=== PATIENT | female | born 1950 | race Caucasian/White ===

== ENCOUNTER 2020-09-03 08:10 | Inpatient (IN) | payer MEDICARE ==
[2020-09-03] MEDS ORDERED: ACETAMINOPHEN TAB 500 MG TAB PO STA (08:37)
[2020-09-03] MEDS ORDERED: ALBUTEROL HFA INHALER INHALATION PRN (08:37)
[2020-09-03] MEDS ORDERED: ALBUTEROL HFA INHALER INHALATION STA (08:37)
[2020-09-03] MEDS ORDERED: SODIUM CHLORIDE 0.9% 1,000 ML IV STA (08:51)
--- NOTE | 2020-09-03 08:53 | ED ---
General Adult HPI - General Chief complaint: Shortness of Breath Stated complaint: Covid+, RIP Time Seen by Provider: 09/03/20 08:22 Source: patient, family, RN notes reviewed Mode of arrival: wheelchair Limitations: no limitations - History of Present Illness Initial comments: Patient is a pleasant 70-year-old female presenting to the emergency Department with complaints of fever and not feeling well. Onset of symptoms was 9 days ago. Patient does have cough and shortness of breath. Patient was tested positive with results last night for Dougherty virus. Patient has fatigue, nonproductive cough, shortness of breath. Patient has myalgias. Patient has chills and decreased appetite. Some minimal nausea. No vomiting or diarrhea. Patient has decreased oral intake. Patient has loss of taste and loss of smell. - Related Data Allergies Allergy/AdvReac Type Severity Reaction Status Date / Time cephalexin [From Keflex] Allergy Anaphylaxis Verified 09/03/20 08:18 Review of Systems ROS Statement: Those systems with pertinent positive or pertinent negative responses have been documented in the HPI. ROS Other: All systems not noted in ROS Statement are negative. Constitutional: Reports: fever, chills Eyes: Denies: eye pain ENT: Denies: ear pain Respiratory: Reports: cough, dyspnea Cardiovascular: Denies: chest pain Endocrine: Reports: fatigue Gastrointestinal: Denies: abdominal pain Genitourinary: Denies: dysuria Musculoskeletal: Denies: back pain Skin: Denies: rash Neurological: Denies: weakness Past Medical History Past Medical History: Diabetes Mellitus, Hypertension History of Any Multi-Drug Resistant Organisms: None Reported Past Surgical History: No Surgical Hx Reported Past Psychological History: No Psychological Hx Reported Smoking Status: Never smoker Past Alcohol Use History: None Reported Past Drug Use History: None Reported General Exam Limitations: no limitations General appearance: alert, in no apparent distress Head exam: Present: normocephalic Eye exam: Present: normal appearance Neck exam: Present: normal inspection Respiratory exam: Present: normal lung sounds bilaterally Cardiovascular Exam: Present: regular rate, normal rhythm GI/Abdominal exam: Present: soft. Absent: tenderness Extremities exam: Present: normal inspection. Absent: pedal edema, calf tenderness Neurological exam: Present: alert Psychiatric exam: Present: normal affect, normal mood Skin exam: Present: normal color Course Vital Signs 09/03/20 09/03/20 09/03/20 08:12 09:40 10:00 Temperature 101.0 F H Pulse Rate 83 Respiratory 18 16 Rate Blood Pressure 119/72 O2 Sat by Pulse 94 L 89 L Oximetry 09/03/20 10:57 Temperature Pulse Rate 87 Respiratory 16 Rate Blood Pressure 108/67 O2 Sat by Pulse 95 Oximetry EKG Findings - EKG Comments: EKG Findings:: Normal sinus rhythm and 96. [place] 150. QRS 82. QT 328. QTC 414. Normal axis. Normal QRS. No acute ST change. Medical Decision Making - Medical Decision Making Patient reevaluated. Pulse ox 89% on room air and still complains of feeling shortness of breath. Patient placed on oxygen. Case discussed with Dr. Maza, who will admit covering for hospital call. - Lab Data Result diagrams: 09/03/20 09:28 09/03/20 09:28 Lab Results 09/03/20 09/03/20 09/03/20 Range/Units 09:28 09:28 09:28 WBC 7.6 (3.8-10.6) k/uL RBC 4.46 (3.80-5.40) m/uL Hgb 12.9 (11.4-16.0) gm/dL Hct 37.3 (34.0-46.0) % MCV 83.6 (80.0-100.0) fL MCH 28.9 (25.0-35.0) pg MCHC 34.6 (31.0-37.0) g/dL RDW 12.4 (11.5-15.5) % Plt Count 240 (150-450) k/uL MPV 7.2 Neutrophils % 85 % Lymphocytes % 11 % Monocytes % 3 % Eosinophils % 0 % Basophils % 0 % Neutrophils # 6.5 (1.3-7.7) k/uL Lymphocytes # 0.8 L (1.0-4.8) k/uL Monocytes # 0.2 (0-1.0) k/uL Eosinophils # 0.0 (0-0.7) k/uL Basophils # 0.0 (0-0.2) k/uL PT 10.2 (9.0-12.0) sec INR 0.9 (<1.2) APTT 24.9 (22.0-30.0) sec Sodium 128 L (137-145) mmol/L Potassium 4.5 (3.5-5.1) mmol/L Chloride 95 L (98-107) mmol/L Carbon Dioxide 23 (22-30) mmol/L Anion Gap 10 mmol/L BUN 4 L (7-17) mg/dL Creatinine 0.47 L (0.52-1.04) mg/dL Est GFR (CKD-EPI)AfAm >90 (>60 ml/min/1.73 sqM) Est GFR (CKD-EPI)NonAf >90 (>60 ml/min/1.73 sqM) Glucose 120 H (74-99) mg/dL Plasma Lactic Acid Orlin (0.7-2.0) mmol/L Calcium 9.0 (8.4-10.2) mg/dL Magnesium 1.7 (1.6-2.3) mg/dL Total Bilirubin 0.5 (0.2-1.3) mg/dL AST 52 H (14-36) U/L ALT 33 (4-34) U/L Alkaline Phosphatase 93 (38-126) U/L Lactate Dehydrogenase 928 H (313-618) U/L Troponin I (0.000-0.034) ng/mL C-Reactive Protein 164.7 H (<10.0) mg/L Total Protein 6.7 (6.3-8.2) g/dL Albumin 3.7 (3.5-5.0) g/dL Coronavirus (PCR) (Not Detectd) 09/03/20 09/03/20 09/03/20 Range/Units 09:28 09:28 09:28 WBC (3.8-10.6) k/uL RBC (3.80-5.40) m/uL Hgb (11.4-16.0) gm/dL Hct (34.0-46.0) % MCV (80.0-100.0) fL MCH (25.0-35.0) pg MCHC (31.0-37.0) g/dL RDW (11.5-15.5) % Plt Count (150-450) k/uL MPV Neutrophils % % Lymphocytes % % Monocytes % % Eosinophils % % Basophils % % Neutrophils # (1.3-7.7) k/uL Lymphocytes # (1.0-4.8) k/uL Monocytes # (0-1.0) k/uL Eosinophils # (0-0.7) k/uL Basophils # (0-0.2) k/uL PT (9.0-12.0) sec INR (<1.2) APTT (22.0-30.0) sec Sodium (137-145) mmol/L Potassium (3.5-5.1) mmol/L Chloride (98-107) mmol/L Carbon Dioxide (22-30) mmol/L Anion Gap mmol/L BUN (7-17) mg/dL Creatinine (0.52-1.04) mg/dL Est GFR (CKD-EPI)AfAm (>60 ml/min/1.73 sqM) Est GFR (CKD-EPI)NonAf (>60 ml/min/1.73 sqM) Glucose (74-99) mg/dL Plasma Lactic Acid Orlin 1.0 (0.7-2.0) mmol/L Calcium (8.4-10.2) mg/dL Magnesium (1.6-2.3) mg/dL Total Bilirubin (0.2-1.3) mg/dL AST (14-36) U/L ALT (4-34) U/L Alkaline Phosphatase (38-126) U/L Lactate Dehydrogenase (313-618) U/L Troponin I <0.012 (0.000-0.034) ng/mL C-Reactive Protein (<10.0) mg/L Total Protein (6.3-8.2) g/dL Albumin (3.5-5.0) g/dL Coronavirus (PCR) Detected A (Not Detectd) - Radiology Data Radiology results: image reviewed (Chest x-ray shows diffuse interstitial infiltrates, left greater than right) Disposition Clinical Impression: Pneumonia due to COVID-19 virus Disposition: ADMITTED IP TO THIS [facility] Condition: Serious Is patient prescribed a controlled substance at d/c from ED?: No Referrals: Nonstaff,Physician [Primary Care Provider] - 1-2 days Decision Time: 11:04
--- NOTE | 2020-09-03 09:54 | XR ---
EXAMINATION TYPE: XR chest 1V portable DATE OF EXAM: 09/03/2020 Comparison: None Clinical History: 70-year-old female Suspected COVID-19 pneumonia Findings: Heart upper limits of normal in size. Hyperinflation. Patchy peripheral midlung opacities, left great er than right. No pleural effusion. Impression: COPD and patchy peripheral COVID pneumonia, left greater than right.
[2020-09-03 09:58] LABS: Basophils % (A) 0 %; Eosinophils % (A) 0 %; HCT 37.3 % (34.0-46.0); HGB 12.9 gm/dL (11.4-16.0); Lymphocytes # (A) 0.8 k/uL (1.0-4.8); Lymphocytes % (A) 11 %; MCH 28.9 pg (25.0-35.0); MCHC 34.6 g/dL (31.0-37.0); MCV 83.6 fL (80.0-100.0); Mean Platelet Volume 7.2; Monocytes # (A) 0.2 k/uL (0-1.0); Monocytes % (A) 3 %; Neutrophils # (A) 6.5 k/uL (1.3-7.7); Neutrophils % (A) 85 %; Platelet Count 240 k/uL (150-450); RBC 4.46 m/uL (3.80-5.40); RDW 12.4 % (11.5-15.5); WBC 7.6 k/uL (3.8-10.6)
[2020-09-03 10:12] LABS: ALT 33 U/L (4-34); AST 52 U/L (14-36); African American GFR (CKD) >90 (>60 ml/min/1.73 sqM); Albumin 3.7 g/dL (3.5-5.0); Alkaline Phosphatase 93 U/L (38-126); Anion Gap 10 mmol/L; Blood Urea Nitrogen 4 mg/dL (7-17); Carbon Dioxide 23 mmol/L (22-30); Chloride 95 mmol/L (98-107); Glucose 120 mg/dL (74-99); LDH 928 U/L (313-618); Magnesium 1.7 mg/dL (1.6-2.3); Non-African American GFR(CKD) >90 (>60 ml/min/1.73 sqM); Potassium 4.5 mmol/L (3.5-5.1); Sodium 128 mmol/L (137-145); Total Bilirubin 0.5 mg/dL (0.2-1.3); Total Protein 6.7 g/dL (6.3-8.2)
[2020-09-03 10:18] LABS: INR 0.9 (<1.2); Partial Thromboplastin Time 24.9 sec (22.0-30.0); Prothrombin Time 10.2 sec (9.0-12.0)
[2020-09-03 10:27] LABS: C Reactive Protein 164.7 mg/L (<10.0)
[2020-09-03] MEDS ORDERED: NALOXONE 0.4 MG/ML 1 ML VIAL IV PRN (11:06)
[2020-09-03] MEDS: ENOXAPARIN 40 MG/0.4 ML SYRINGE SQ SCH (11:49)
[2020-09-03] MEDS: ASCORBIC ACID 500 MG TAB PO SCH ×2 (11:49→19:12)
[2020-09-03] MEDS: CHOLECALCIFEROL 25 MCG (1000 IU) TABLET PO SCH (11:49)
[2020-09-03] MEDS: ZINC SULFATE 220 MG CAP PO SCH (11:49)
[2020-09-03] MEDS: DEXAMETHASONE SOD PHOSPHATE 10 MG/ML 1 ML VIAL IV SCH (11:49)
[2020-09-03] MEDS: SODIUM CHLORIDE 0.9% 1,000 ML IV SCH (13:14)
[2020-09-03] MEDS: ALBUTEROL HFA INHALER INHALATION SCH ×2 (16:22→19:59)
[2020-09-03] MEDS ORDERED: REMDESIVIR 200 MG in SODIUM CHLORIDE 0.9% 250 ML IVPB ONE (17:30)
--- NOTE | 2020-09-03 17:38 | P.CNPUL ---
History of Present Illness Consult date: 09/03/20 Reason for consult: dyspnea History of present illness: 70-year-old male patient hospitalized for COVID-19 related pneumonia. The patient presented to the hospital because of cough and shortness of breath. He tested positive for COVID-19. He is also having some fatigue, nonproductive cough, myalgia. He has been having chills and diminished appetite. He has also lost his taste and smell. In the emergency, the patient had a temperature of 11.0, his white cycle was at 7.6 with a hemoglobin of 12.9, the patient had lymphopenia, sodium level was 128, normal renal function, normal LFTs, LDH was 928 with a CRP level of 164. The chest x-ray showed COPD and patchy peripheral pulmonary infiltrates left greater than right. The patient is on oxygen on 2 L per minute nasal cannula. Comorbid conditions include diabetes mellitus, hypertension and previous history of breast cancer. Review of Systems 14 point review of system was done and the positive findings were mentioned above in history of present illness Constitutional: Reports fatigue, Reports weight loss Eyes: denies as per HPI, denies blurred vision, denies bulging eye, denies decreased vision, denies diplopia, denies discharge, denies dry eye, denies irritation, denies itching, denies pain, denies photophobia, denies loss of peripheral vision, denies loss of vision, denies tunnel vision/blind spots Ears, nose, mouth and throat: Reports as per HPI Breasts: absent: as per HPI, change in shape, gynecomastia, masses, nipple discharge, pain, skin changes, swelling Cardiovascular: Reports dyspnea on exertion Respiratory: Reports cough, Reports dyspnea Gastrointestinal: Reports diarrhea, Reports loss of appetite Genitourinary: Reports as per HPI Menstruation: Reports as per HPI Musculoskeletal: Reports as per HPI Musculoskeletal: absent: ankle pain, ankle stiffness, ankle swelling, as per HPI, elbow pain, elbow stiffness, elbow swelling, foot pain, foot stiffness, foot swelling, hand pain, hand stiffness, hand swelling, hip pain, hip stiffness, hip swelling, knee pain, knee stiffness, knee swelling, shoulder pain, shoulder stiffness, shoulder swelling, wrist pain, wrist stiffness, wrist swelling Integumentary: Reports as per HPI Neurological: Reports as per HPI Psychiatric: Reports as per HPI Endocrine: Reports as per HPI Hematologic/Lymphatic: Reports as per HPI Allergic/Immunologic: Reports as per HPI Past Medical History Past Medical History: Diabetes Mellitus, GERD/Reflux, Hypertension Additional Past Medical History / Comment(s): Pt tested covid + 09/03/20 at [facility] ER. Other hx: NIDDM type II, L breast cancer with lumpectomy/radi ation/anastozole, hiatal hernia, UTIs History of Any Multi-Drug Resistant Organisms: None Reported Past Surgical History: Breast Surgery, Cholecystectomy, Tonsillectomy Additional Past Surgical History / Comment(s): L breast biopsy/lumpectomy, colonoscopy, bilateral cataract removals/lens implants. The patient has also had undergone a parathyroidectomy Past Anesthesia/Blood Transfusion Reactions: No Reported Reaction Smoking Status: Never smoker - Past Family History Father Family Medical History: Myocardial Infarction ([place]) Additional Family Medical History / Comment(s): Father of a DE at the age of 83 yrs. Mother Family Medical History: CVA/TIA, Diabetes Mellitus Medications and Allergies Home Medications Medication Instructions Recorded Confirmed Type Anastrozole 1 mg PO DAILY 09/03/20 09/03/20 History Cholecalciferol [Vitamin D3 (25 50 mcg PO DAILY 09/03/20 09/03/20 History Mcg = 1000 Iu)] Enalapril [Vasotec] 10 mg PO DAILY 09/03/20 09/03/20 History Pantoprazole Sodium 20 mg PO DAILY 09/03/20 09/03/20 History Ubidecarenone [Co Q-10] 300 mg PO DAILY 09/03/20 09/03/20 History Vitamin E 400 unit PO DAILY 09/03/20 09/03/20 History amLODIPine [Norvasc] 10 mg PO DAILY 09/03/20 09/03/20 History metFORMIN HCL [Glucophage] 500 mg PO BID 09/03/20 09/03/20 History Allergies Allergy/AdvReac Type Severity Reaction Status Date / Time cephalexin [From Keflex] Allergy Anaphylaxis Verified 09/03/20 11:05 Physical Exam Vitals: Vital Signs Temp Pulse Pulse Resp BP BP Pulse Ox 09/03/20 16:22 97 09/03/20 15:18 20 09/03/20 14:50 98.7 F 91 16 123/69 96 09/03/20 14:00 98.2 F 91 18 127/72 94 L 09/03/20 11:51 98.7 F 86 16 122/62 96 09/03/20 10:57 87 16 108/67 95 09/03/20 10:00 89 L 09/03/20 09:40 16 09/03/20 08:12 101.0 F H 83 18 119/72 94 L Intake and Output 09/03/20 09/03/20 09/03/20 06:59 14:59 22:59 Other: Weight 68.946 kg The patient appeared well nourished and normally developed. No apparent respiratory distress and the patient is currently on 2 L about 2 by nasal cannula Vital signs as documented. Head exam is unremarkable. No scleral icterus or corneal arcus noted. Neck is without jugular venous distension, thyromegaly, or carotid bruits. Carotid upstrokes are brisk bilaterally. Lungs are clear to auscultation and percussion. The patient has some limited crackles in lung bases bilaterally. Cardiac exam reveals the PMI to be normally sized and situated. Rhythm is regular. First and second heart sounds normal. No murmurs, rubs or gallops. Abdominal exam reveals normal bowel sounds, no masses, no organomegaly and no aortic enlargement. Extremities are nonedematous and both femoral and pedal pulses are normal.Examination of the skin revealed no evidence of significant rashes, suspicious appearing nevi or other concerning lesions. Neurologically, the patient is awake and alert and the patient does not have any focal neurological deficit. Cranial nerves are essentially intact. Results - Laboratory Findings CBC and BMP: 09/03/20 09:28 09/03/20 09:28 PT/INR, D-dimer PT 10.2 sec (9.0-12.0) 09/03/20 09:28 INR 0.9 (<1.2) 09/03/20 09:28 Abnormal lab findings: Abnormal Labs 09/03/20 09/03/20 09/03/20 09:28 09:28 09:28 Lymphocytes # 0.8 L Sodium 128 L Chloride 95 L BUN 4 L Creatinine 0.47 L Glucose 120 H AST 52 H Lactate Dehydrogenase 928 H C-Reactive Protein 164.7 H Coronavirus (PCR) Detected A - Diagnostic Findings Chest x-ray: image reviewed Assessment and Plan Plan: 1 acute COVID-19 related pneumonia. Symptoms started approximately 9 days ago. The patient presented with shortness of breath and constitutional symptoms addition to some limited pneumonia and lung bases bilaterally. 2 acute hypoxic respiratory failure currently on 2 L about 2 by nasal cannula. Chest x-ray was reviewed 3 diabetes mellitus maintained on metformin 4 hypertension 5 history of breast cancer with previous lumpectomy currently on anastrozole Plan Decadron 6 mg IV every 24 hours Lovenox 40 mg subcu every 24 hours Check inflammatory markers including a d-dimer mildly elevated LDH, elevated CRP and the d-dimer is still pending for now Remdesivir and convalescent plasma will be offered to this patient We'll continue to follow. Resume home medications. Monitor oxygenation.
--- NOTE | 2020-09-03 21:05 | P.HPIM ---
History of Present Illness H&P Date: 09/03/20 Chief Complaint: Shortness of breath Patient is a 70-year-old female with a known history of hypertension, diabetes type 2, GERD, diabetes type 2 [id number], history of breast cancer with lumpectomy/radiation/anastrozole presents to ER with complaints of cough and worsening shortness of breath. Patient states that she has been having symptoms since August 25, 2020. She has been having generalized weakness fatigue cough and myalgias. Patient states that she also last sense of taste and smell. No complaints of chest pain. No headache or dizziness or lightheadedness. Patient states that she also felt dizzy at home. No diarrhea. On admission patient has been febrile with T-max of 101.0 and pulse ox 89% on room air. Chest x-ray showed COPD and patchy peripheral Covid pneumonia, left greater than right. EKG showed normal sinus rhythm Laboratory data showed sodium 128 potassium 4.5 chloride 95 BUN 14 creatinine 0.47, AST 52 ALT 33 alk phos 93 LDH 928 troponin less than 0.012, CRP 164 and COVID-19 PCR detected. Review of Systems Constitutional: Patient does have fever and chills. Generalized weakness and fatigue and malaise myalgias. Abdomen: Patient denied nausea vomiting and diarrhea and abdominal pain. Cardiovascular: Patient denies any chest pain or short of breath no palpitations. Respiratory: Patient does have cough without sputum production. Shortness of breath. Neurologic: Patient denied any numbness or tingling headache. Musculoskeletal: Patient denies any complaints of joint swelling or deformity. Skin: Negative Psychiatric: Negative Endocrine: No heat or cold intolerance. No recent weight gain. Genitourinary: No dysuria or hematuria. All other 14 point ROS negative except the above Past Medical History Past Medical History: Diabetes Mellitus, GERD/Reflux, Hypertension Additional Past Medical History / Comment(s): Pt tested covid + 09/03/20 at [facility] ER. Other hx: NIDDM type II, L breast cancer with lumpectomy/radiation/anas tozole, hiatal hernia, UTIs History of Any Multi-Drug Resistant Organisms: None Reported Past Surgical History: Breast Surgery, Cholecystectomy, Tonsillectomy Additional Past Surgical History / Comment(s): L breast biopsy/lumpectomy, colonoscopy, bilateral cataract removals/lens implants. Past Anesthesia/Blood Transfusion Reactions: No Reported Reaction Smoking Status: Never smoker - Past Family History Father Family Medical History: Myocardial Infarction ([place]) Additional Family Medical History / Comment(s): Father of a [place] at the age of 83 yrs. Mother Family Medical History: CVA/TIA, Diabetes Mellitus Medications and Allergies Home Medications Medication Instructions Recorded Confirmed Type Anastrozole 1 mg PO DAILY 09/03/20 09/03/20 History Cholecalciferol [Vitamin D3 (25 50 mcg PO DAILY 09/03/20 09/03/20 History Mcg = 1000 Iu)] Enalapril [Vasotec] 10 mg PO DAILY 09/03/20 09/03/20 History Pantoprazole Sodium 20 mg PO DAILY 09/03/20 09/03/20 History Ubidecarenone [Co Q-10] 300 mg PO DAILY 09/03/20 09/03/20 History Vitamin E 400 unit PO DAILY 09/03/20 09/03/20 History amLODIPine [Norvasc] 10 mg PO DAILY 09/03/20 09/03/20 History metFORMIN HCL [Glucophage] 500 mg PO BID 09/03/20 09/03/20 History Allergies Allergy/AdvReac Type Severity Reaction Status Date / Time cephalexin [From Keflex] Allergy Anaphylaxis Verified 09/03/20 11:05 Physical Exam Vitals: Vital Signs Temp Pulse Resp BP Pulse Ox 09/03/20 14:50 98.7 F 91 16 123/69 96 09/03/20 11:51 98.7 F 86 16 122/62 96 09/03/20 10:57 87 16 108/67 95 09/03/20 10:00 89 L 09/03/20 09:40 16 09/03/20 08:12 101.0 F H 83 18 119/72 94 L Intake and Output 09/02/20 09/03/20 09/03/20 22:59 06:59 14:59 Other: Weight 68.946 kg PHYSICAL EXAMINATION: Patient is lying in the bed comfortably, no acute distress, awake alert and oriented.. HEENT: Normocephalic. Neck is supple. Pupils reactive. Nostrils clear. Oral cavity is moist. Ears reveal no drainage. Neck reveals no JVD, carotid bruits, or thyromegaly. CHEST EXAMINATION: Trachea is central. Symmetrical expansion. Lung jimenez clear to auscultation and percussion. CARDIAC: Normal S1, S2 with no gallops. No murmurs ABDOMEN: Soft. Bowel sounds normal. No organomegaly. No abdominal bruits. Extremities: reveal no edema. No clubbing or cyanosis Neurologically awake, alert, oriented x3 with well-coordinated movements. No focal deficits noted Skin: No rash or skin lesions. Psychiatric: Coperative. Nonsuicidal Musculoskeletal: No joint swelling or deformity. Normal range of motion. Results CBC & Chem 7: 09/03/20 09:28 09/03/20 09:28 Labs: Abnormal Lab Results - Last 24 Hours (Table) 09/03/20 09/03/20 09/03/20 Range/Units 09:28 09: 09:28 Lymphocytes # 0.8 L (1.0-4.8) k/uL Sodium 128 L (137-145) mmol/L Chloride 95 L (98-107) mmol/L BUN 4 L (7-17) mg/dL Creatinine 0.47 L (0.52-1.04) mg/dL Glucose 120 H (74-99) mg/dL AST 52 H (14-36) U/L Lactate Dehydrogenase 928 H (313-618) U/L C-Reactive Protein 164.7 H (<10.0) mg/L Coronavirus (PCR) Detected A (Not Detectd) Thrombosis Risk Factor Assmnt - DVT/VTE Prophylaxis DVT/VTE Prophylaxis: Pharmacologic Prophylaxis ordered - Choose All That Apply Any of the Below Risk Factors Present?: Yes Each Factor Represents 1 point: Obesity (BMI >25), Serious lung disease incl. pneumonia (< 1month) Other Risk Factors: Yes Each Risk Factor Represents 2 Points: Age 61-74 years, Malignancy Other congenital or acquired thrombophilia - If yes, enter type in comment: No Thrombosis Risk Factor Assessment Total Risk Factor Score: 6 Thrombosis Risk Factor Assessment Level: High Risk Assessment and Plan Assessment: Acute COVID-19 pneumonia. Patient started having symptoms since 08/25/2020 Acute hypoxic respiratory failure requiring 2 L oxygen via nasal cannula Hypovolemic hyponatremia Lymphopenia Elevated inflammatory markers secondary to COVID-19 infection GERD Hypertension Diabetes type 2 DVT prophylax with Lovenox History of breast cancer status post lumpectomy/radiation currently on anastrozole Plan: Patient will be continued on dexamethasone 6 mg daily and and Lovenox subcu. Patient may be candidate for remdesivir therapy. Pulmonary was consulted. Continue with multivitamins and follow-up tumor markers. Continue without supplementation and follow-up closely. Further recommendations based on the clinical course. Time with Patient: Greater than 30
[2020-09-03] MEDS: ACETAMINOPHEN TAB 500 MG TAB PO PRN (22:13)
[2020-09-03 23:41] LABS: Ferritin 537.6 ng/mL (10.0-291.0)
[2020-09-04] MEDS: SODIUM CHLORIDE 0.9% 1,000 ML IV SCH ×2 (01:32→15:38)
[2020-09-04] MEDS: ALBUTEROL HFA INHALER INHALATION SCH ×4 (07:08→19:20)
[2020-09-04] MEDS: DEXAMETHASONE SOD PHOSPHATE 10 MG/ML 1 ML VIAL IV SCH (07:48)
[2020-09-04] MEDS: ENOXAPARIN 40 MG/0.4 ML SYRINGE SQ SCH (07:48)
[2020-09-04] MEDS: CHOLECALCIFEROL 25 MCG (1000 IU) TABLET PO SCH (07:49)
[2020-09-04] MEDS: ASCORBIC ACID 500 MG TAB PO SCH ×2 (07:49→19:24)
[2020-09-04] MEDS: PANTOPRAZOLE 40 MG/10 ML VIAL IV SCH (07:49)
[2020-09-04] MEDS: ZINC SULFATE 220 MG CAP PO SCH (07:49)
[2020-09-04 09:32] LABS: African American GFR (CKD) 113.7 (60.0-200.0); Anion Gap 8.2 mmol/L (4.00-12.00); Calcium 9.2 mg/dL (8.7-10.3); Carbon Dioxide 23.8 mmol/L (21.6-31.8); Non-African American GFR(CKD) 98.1 (60.0-200.0); Potassium 4.1 mmol/L (3.5-5.5)
[2020-09-04 09:37] LABS: HCT 34.2 % (37.2-46.3); HGB 11.2 g/dL (12.0-15.0); MCH 28.1 pg (27.0-32.0); MCHC 32.7 g/dL (32.0-37.0); MCV 85.7 fL (80.0-97.0); Mean Platelet Volume 9.5 fL (9.5-12.2); Platelet Count 271 X 10*3/uL (140-440); RBC 3.99 X 10*6/uL (4.10-5.20); WBC 3.79 X 10*3/uL (4.50-10.00)
[2020-09-04 10:58] LABS: Basophils # (A) 0.01 X 10*3/uL (0.00-0.10); Basophils % (A) 0.3 %; Eosinophils # (A) 0 X 10*3/uL (0.04-0.35); Eosinophils % (A) 0 %; Lymphocytes # (A) 1.04 X 10*3/uL (0.90-5.00); Lymphocytes % (A) 27.4 %; Monocytes # (A) 0.39 X 10*3/uL (0.20-1.00); Monocytes % (A) 10.3 %; Neutrophils # (A) 2.33 X 10*3/uL (1.80-7.70); Neutrophils % (A) 61.5 %
[2020-09-04 12:13] VITALS: BMI 27.8
[2020-09-04] MEDS: ACETAMINOPHEN TAB 500 MG TAB PO PRN (15:15)
--- NOTE | 2020-09-04 16:14 | P.PN ---
Subjective Progress Note Date: 09/04/20 70-year-old male patient hospitalized for COVID-19 related pneumonia. The patient presented to the hospital because of cough and shortness of breath. He tested positive for COVID-19. He is also having some fatigue, nonproductive cough, myalgia. He has been having chills and diminished appetite. He has also lost his taste and smell. In the emergency, the patient had a temperature of 11.0, his white cycle was at 7.6 with a hemoglobin of 12.9, the patient had lymphopenia, sodium level was 128, normal renal function, normal LFTs, LDH was 928 with a CRP level of 164. The chest x-ray showed COPD and patchy peripheral pulmonary infiltrates left greater than right. The patient is on oxygen on 2 L per minute nasal cannula. Comorbid conditions include diabetes mellitus, hypertension and previous history of breast cancer. 09/04/2020, the patient has no specific complaints. She is still on Decadron 6 mg IV along with Remdesivir day #2 of treatment. The patient also got transfused with a unit of convalescent plasma yesterday. No side effect to the treatment. Her LDH is also improving and the level is down to 316 with a CRP level being down to 15. D-dimer is low at 0.7 and the patient remains on Lovenox for DVT prophylaxis. No complaints. Pulse ox is around 96% on 2 L of oxygen by nasal cannula. We are going to check this patient's oxygenation on room air. No nausea. No vomiting. No diarrhea. No fever. No other significant issues otherwise for now. Objective - Vital Signs Vital signs: Vital Signs Temp 97.7 F 09/04/20 13:20 Pulse 76 09/04/20 13:20 Resp 16 09/04/20 13:20 BP 127/78 09/04/20 13:20 Pulse Ox 96 09/04/20 13:20 Intake & Output 09/03/20 09/04/20 09/04/20 18:59 06:59 18:59 Intake Total 150 292 Balance 150 292 Weight 68.946 kg 68.946 kg Intake: IV 150 Sodium Chloride 0.9% 1, 150 000 ml @ 75 mls/hr IV . [id number] [facility] Rx#:[id number] Blood Product 292 Ffp Convalescent Plasma 292 Cpd Unit [id number] Other: # Voids 1 3 - Exam The patient appeared well nourished and normally developed. No apparent respiratory distress and the patient is currently on 2 L about 2 by nasal cannula Vital signs as documented. Head exam is unremarkable. No scleral icterus or corneal arcus noted. Neck is without jugular venous distension, thyromegaly, or carotid bruits. Carotid upstrokes are brisk bilaterally. Lungs are clear to auscultation and percussion. The patient has some limited crackles in lung bases bilaterally. Cardiac exam reveals the PMI to be normally sized and situated. Rhythm is regular. First and second heart sounds normal. No murmurs, rubs or gallops. Abdominal exam reveals normal bowel sounds, no masses, no organomegaly and no aortic enlargement. Extremities are nonedematous and both femoral and pedal pulses are normal.Examination of the skin revealed no evidence of significant rashes, suspicious appearing nevi or other concerning lesio ns.Neurologically, the patient is awake and alert and the patient does not have any focal neurological deficit. Cranial nerves are essentially intact. - Labs CBC & Chem 7: 09/04/20 06:18 09/04/20 06:18 Labs: Abnormal Lab Results - Last 24 Hours (Table) 09/03/20 09/03/20 09/04/20 Range/Units 09:28 09:28 06:18 WBC 3.79 L (4.50-10.00) X 10*3/uL RBC 3.99 L (4.10-5.20) X 10*6/uL Hgb 11.2 L (12.0-15.0) g/dL Hct 34.2 L (37.2-46.3) % Eosinophils # 0 L (0.04-0.35) X 10*3/uL D-Dimer (<0.60) mg/L FEU BUN (9.0-27.0) mg/dL Creatinine (0.6-1.5) mg/dL Glucose (70-110) mg/dL Ferritin 537.6 H (10.0-291.0) ng/mL Lactate Dehydrogenase (120-246) U/L C-Reactive Protein (0.0-0.8) mg/dL Procalcitonin 0.92 H (0.02-0.09) ng/mL 09/04/20 09/04/20 Range/Units 06:18 06:18 WBC (4.50-10.00) X 10*3/uL RBC (4.10-5.20) X 10*6/uL Hgb (12.0-15.0) g/dL Hct (37.2-46.3) % Eosinophils # (0.04-0.35) X 10*3/uL D-Dimer 0.70 H (<0.60) mg/L FEU BUN 8.0 L (9.0-27.0) mg/dL Creatinine 0.5 L (0.6-1.5) mg/dL Glucose 240 H (70-110) mg/dL Ferritin (10.0-291.0) ng/mL Lactate Dehydrogenase 316 H (120-246) U/L C-Reactive Protein 15.0 H (0.0-0.8) mg/dL Procalcitonin (0.02-0.09) ng/mL Assessment and Plan Plan: 1 acute COVID-19 related pneumonia. Symptoms started approximately 9 days ago. The patient presented with shortness of breath and constitutional symptoms addition to some limited pneumonia and lung bases bilaterally. 2 acute hypoxic respiratory failure currently on 2 L about 2 by nasal cannula. Chest x-ray was reviewed 3 diabetes mellitus maintained on metformin 4 hypertension 5 history of breast cancer with previous lumpectomy currently on anastrozole Plan Decadron 6 mg IV every 24 hours Lovenox 40 mg subcu every 24 hours Check inflammatory markers show a drop in the LDH and the CRP. D-dimer is also low at 0.7. Remdesivir day #2 Patient has been given convalescent plasma 1 Checks pulse ox on room air Potential discharge within next 24 hours if oxygenation is stable.
[2020-09-04] MEDS: REMDESIVIR 100 MG in SODIUM CHLORIDE 0.9% 250 ML IVPB SCH (16:49)
[2020-09-05] MEDS: SODIUM CHLORIDE 0.9% 1,000 ML IV SCH ×2 (03:23→23:05)
[2020-09-05] MEDS: ZINC SULFATE 220 MG CAP PO SCH (07:53)
[2020-09-05] MEDS: CHOLECALCIFEROL 25 MCG (1000 IU) TABLET PO SCH (07:53)
[2020-09-05] MEDS: ASCORBIC ACID 500 MG TAB PO SCH ×2 (07:54→19:18)
[2020-09-05] MEDS: DEXAMETHASONE SOD PHOSPHATE 10 MG/ML 1 ML VIAL IV SCH (07:54)
[2020-09-05] MEDS: ENOXAPARIN 40 MG/0.4 ML SYRINGE SQ SCH (07:54)
[2020-09-05] MEDS: PANTOPRAZOLE 40 MG/10 ML VIAL IV SCH (07:54)
[2020-09-05] MEDS: ALBUTEROL HFA INHALER INHALATION SCH ×4 (08:15→19:05)
--- NOTE | 2020-09-05 15:26 | P.PN ---
Subjective Progress Note Date: 09/05/20 70-year-old male patient hospitalized for COVID-19 related pneumonia. The patient presented to the hospital because of cough and shortness of breath. He tested positive for COVID-19. He is also having some fatigue, nonproductive cough, myalgia. He has been having chills and diminished appetite. He has also lost his taste and smell. In the emergency, the patient had a temperature of 11.0, his white cycle was at 7.6 with a hemoglobin of 12.9, the patient had lymphopenia, sodium level was 128, normal renal function, normal LFTs, LDH was 928 with a CRP level of 164. The chest x-ray showed COPD and patchy peripheral pulmonary infiltrates left greater than right. The patient is on oxygen on 2 L per minute nasal cannula. Comorbid conditions include diabetes mellitus, hypertension and previous history of breast cancer. 09/04/2020, the patient has no specific complaints. She is still on Decadron 6 mg IV along with Remdesivir day #2 of treatment. The patient also got transfused with a unit of convalescent plasma yesterday. No side effect to the treatment. Her LDH is also improving and the level is down to 316 with a CRP level being down to 15. D-dimer is low at 0.7 and the patient remains on Lovenox for DVT prophylaxis. No complaints. Pulse ox is around 96% on 2 L of oxygen by nasal cannula. We are going to check this patient's oxygenation on room air. No nausea. No vomiting. No diarrhea. No fever. No other significant issues otherwise for now. Or 2020, the patient is doing extremely well. She is on Decadron. She is on day #3 of Remdesivir. I took this patient off the oxygen and the patient has been on room oxygen since. She is still feeling weak. She is tolerating her diet no nausea or vomiting. She is a bit hesitant to go home yet. D-dimer is at 0.7. Her LDH level is up down to 3:15 in the CRP has dropped down to 15. Hemodynamically stable. No other new issues for now. No respiratory difficulties speech is continuing to use the incentive spirometer. Objective - Vital Signs Vital signs: Vital Signs Temp 98.1 F 09/05/20 13:45 Pulse 90 04/18/21 13:45 Resp 16 09/05/20 13:45 BP 137/77 09/05/20 13:45 Pulse Ox 93 L 09/05/20 13:45 Intake & Output 09/04/20 09/05/20 09/05/20 18:59 06:59 18:59 Weight 68.946 kg Other: # Voids 1 1 - Exam The patient appeared well nourished and normally developed. No apparent respiratory distress and the patient is currently on room air oxygen. Vital signs as documented. Head exam is unremarkable. No scleral icterus or corneal arcus noted. Neck is without jugular venous distension, thyromegaly, or carotid bruits. Carotid upstrokes are brisk bilaterally. Lungs are clear to auscultation and percussion. The patient has some limited crackles in lung bases bila terally. Cardiac exam reveals the PMI to be normally sized and situated. Rhythm is regular. First and second heart sounds normal. No murmurs, rubs or gallops. Abdominal exam reveals normal bowel sounds, no masses, no organomegaly and no aortic enlargement. Extremities are nonedematous and both femoral and pedal pulses are normal.Examination of the skin revealed no evidence of significant rashes, suspicious appearing nevi or other concerning lesions.Neurologically, the patient is awake and alert and the patient does not have any focal neurological deficit. Cranial nerves are essentially intact. - Labs CBC & Chem 7: 09/04/20 06:18 09/04/20 06:18 Assessment and Plan Plan: 1 acute COVID-19 related pneumonia. Symptoms started approximately 9 days ago. The patient presented with shortness of breath and constitutional symptoms addition to some limited pneumonia and lung bases bilaterally. Clinically s table and the patient is currently on room air oxygen. 2 acute hypoxic respiratory failure currently on 2 L about 2 by nasal cannula. Chest x-ray was reviewed 3 diabetes mellitus maintained on metformin 4 hypertension 5 history of breast cancer with previous lumpectomy currently on anastrozole Plan Decadron 6 mg IV every 24 hours Lovenox 40 mg subcu every 24 hours Check inflammatory markers show a drop in the LDH and the CRP. D-dimer is also low at 0.7. Remdesivir day #3 Patient has been given convalescent plasma 1 Currently on room air oxygen Discharge home per medicine. Pulmonary critical care services we'll sign off. She needs to continue her Decadron for a total of 10 days. The Remdesivir can be discontinued and can be stopped after 4 days of treatment as the patient is clinically recovering
[2020-09-05] MEDS: REMDESIVIR 100 MG in SODIUM CHLORIDE 0.9% 250 ML IVPB SCH (17:17)
[2020-09-06] MEDS ORDERED: PANTOPRAZOLE 40 MG TABLET PO SCH (07:30)
[2020-09-06 07:50] VITALS: RESP 16
[2020-09-06] MEDS: ALBUTEROL HFA INHALER INHALATION SCH ×3 (08:03→15:22)
[2020-09-06] MEDS: CHOLECALCIFEROL 25 MCG (1000 IU) TABLET PO SCH (08:30)
[2020-09-06] MEDS: DEXAMETHASONE SOD PHOSPHATE 10 MG/ML 1 ML VIAL IV SCH (08:30)
[2020-09-06] MEDS: ENOXAPARIN 40 MG/0.4 ML SYRINGE SQ SCH (08:30)
[2020-09-06] MEDS: ASCORBIC ACID 500 MG TAB PO SCH (08:31)
[2020-09-06] MEDS: ZINC SULFATE 220 MG CAP PO SCH (08:31)
--- NOTE | 2020-09-06 13:24 | P.DS ---
Providers Date of admission: 09/03/20 11:09 Expected date of discharge: 09/06/20 Attending physician: Andrews Maza Consults: 09/03/20 11:07 Consult Physician Urgent Consulting Provider: Zuri Turner Consult Reason/Comments: covid Do you want consulting provider notified?: Yes Primary care physician: Physician Nonstaff Hospital Course: Final diagnosis Acute COVID-19 pneumonia. Patient started having symptoms since 08/25/2020 Acute hypoxic respiratory failure requiring 2 L oxygen via nasal cannula secondary to above Hypovolemic hyponatremia, improved Lymphopenia Elevated inflammatory markers secondary to COVID-19 infection GERD Hypertension Diabetes type 2 DVT prophylaxis History of breast cancer status post lumpectomy/radiation currently on anastrozole Discharge disposition Patient is being discharged in a stable condition with guarded prognosis to home. Patient will follow-up with primary care provider in the outpatient setting upon discharge. Patient is to continue with dexamethasone 6 mg daily for the next 6 days to complete the course along with vitamin and zinc supplements. Total time taken is greater than 35 minutes. Hospital course This is a 70-year-old female who was recently admitted with cough and shortness of breath that had been worsening and patient states her symptoms started 08/25/2020. Pulmonary following the patient and patient was started on IV dexamethasone along with vitamin and zinc supplements, Lovenox, and the Remdesivir. Patient will be receiving her last dose today and will be discharged home. Patient encouraged to continue with vitamin and zinc supplements, monitoring for fevers and treated with Tylenol and/or Motrin, encouraging fluids and rest, and advancing activity slowly as tolerated. Patient also instructed to follow-up with primary care provider upon discharge. She will follow up with pulmonary in the outpatient setting in 2-3 weeks. Currently no reports of chest pain, worsening shortness of breath, or palpitations. Patient is afebrile. No reports of nausea or vomiting and patient is tolerating diet. Patient will be discharged home today. On exam vital signs are stable. Cardio S1, S2 are muffled. Respiratory system shows diminished breath sounds at the bases with no wheezing or rhonchi noted. Abdomen is soft and nontender. Nervous system shows no focal deficits. Please refer to medication reconciliation sheet for a list of medications. Patient Condition at Discharge: Stable Plan - Discharge Summary Discharge Rx Participant: No New Discharge Prescriptions: New Dexamethasone 6 mg PO DAILY 6 Days #6 tablet Acetaminophen Tab [Tylenol] 1,000 mg PO Q6HR PRN #30 tab PRN Reason: Fever>101 Albuterol Inhaler [Ventolin Hfa Inhaler] 2 puff INHALATION RT-QID 30 Days #1 puff Albuterol Inhaler [Ventolin Hfa Inhaler] 2 puff INHALATION RT-Q6H PRN puff PRN Reason: Shortness Of Breath Or Wheezing Zinc Sulfate [Orazinc] 220 mg PO DAILY 30 Days #30 cap Ascorbic Acid [Vitamin C] 500 mg PO BID 30 Days #60 tab Continue metFORMIN HCL [Glucophage] 500 mg PO BID Pantoprazole Sodium 20 mg PO DAILY Enalapril [Vasotec] 10 mg PO DAILY Anastrozole 1 mg PO DAILY Ubidecarenone [Co Q-10] 300 mg PO DAILY Cholecalciferol [Vitamin D3 (25 Mcg = 1000 Iu)] 50 mcg PO DAILY Vitamin E 400 unit PO DAILY amLODIPine [Norvasc] 10 mg PO DAILY Discharge Medication List Anastrozole 1 mg PO DAILY 09/03/20 [History] Cholecalciferol [Vitamin D3 (25 Mcg = 1000 Iu)] 50 mcg PO DAILY 09/03/20 [History] Enalapril [Vasotec] 10 mg PO DAILY 09/03/20 [History] Pantoprazole Sodium 20 mg PO DAILY 09/03/20 [History] Ubidecarenone [Co Q-10] 300 mg PO DAILY 09/03/20 [History] Vitamin E 400 unit PO DAILY 09/03/20 [History] amLODIPine [Norvasc] 10 mg PO DAILY 09/03/20 [History] metFORMIN HCL [Glucophage] 500 mg PO BID 09/03/20 [History] Acetaminophen Tab [Tylenol] 1,000 mg PO Q6HR PRN #30 tab 09/06/20 [Rx] Albuterol Inhaler [Ventolin Hfa Inhaler] 2 puff INHALATION RT-Q6H PRN puff 09/06/20 [Rx] Albuterol Inhaler [Ventolin Hfa Inhaler] 2 puff INHALATION RT-QID 30 Days #1 puff 09/06/20 [Rx] Ascorbic Acid [Vitamin C] 500 mg PO BID 30 Days #60 tab 09/06/20 [Rx] Dexamethasone 6 mg PO DAILY 6 Days #6 tablet 09/06/20 [Rx] Zinc Sulfate [Orazinc] 220 mg PO DAILY 30 Days #30 cap 09/06/20 [Rx] Follow up Appointment(s)/Referral(s): Nonstaff,Physician [Primary Care Provider] - 1-2 days Zuri Turner MD [STAFF PHYSICIAN] - 10/08/20 2:45 pm () Activity/Diet/Wound Care/Special Instructions: Okay for discharge after receiving dose of Remdesivir Activity Limited until follow-up Follow-up with primary care provider upon discharge Follow-up pulmonary outpatient Continue with dexamethasone until finished continue with vitamins Encourage fluids and rest Monitor for fever and treat with Tylenol and/or Motrin resume blood pressure medications Discharge Disposition: HOME SELF-CARE
[2020-09-06] MEDS: REMDESIVIR 100 MG in SODIUM CHLORIDE 0.9% 250 ML IVPB SCH (14:11)
[2020-09-06 14:46] VITALS: BP 148/75; PULSE 72; TEMP 97.6
== END 2020-09-06 16:05 | disposition home or self-care (01) | DRG 177 ==
LOC: EC 08:10 → 4SSUR 11:09 → 6NMEDSUR 14:22
PROVIDERS: ADMIT Internal Medicine; ATTEND Internal Medicine
PROC: XW033E5 Introduction of Remdesivir Anti-infective into Peripheral Vein, Percutaneous Approach, New Technology Group 5 (ICD-10-PCS; principal; 2020-09-03)
DX: U07.1 COVID-19 (principal); J12.82 Pneumonia due to coronavirus disease 2019; J96.01 Acute respiratory failure with hypoxia; J44.0 Chronic obstructive pulmonary disease with (acute) lower respiratory infection; E87.1 Hypo-osmolality and hyponatremia; D72.810 Lymphocytopenia; K21.9 Gastro-esophageal reflux disease without esophagitis; E11.9 Type 2 diabetes mellitus without complications; E86.1 Hypovolemia; I10 Essential (primary) hypertension; Z79.811 Long term (current) use of aromatase inhibitors; Z79.84 Long term (current) use of oral hypoglycemic drugs; Z79.899 Other long term (current) drug therapy; C50.912 Malignant neoplasm of unspecified site of left female breast; Z92.3 Personal history of irradiation; Z98.42 Cataract extraction status, left eye; Z98.41 Cataract extraction status, right eye; Z96.1 Presence of intraocular lens; Z90.49 Acquired absence of other specified parts of digestive tract; Z90.89 Acquired absence of other organs; Z87.01 Personal history of pneumonia (recurrent); Z82.3 Family history of stroke; Z88.1 Allergy status to other antibiotic agents; Z82.49 Family history of ischemic heart disease and other diseases of the circulatory system; Z83.3 Family history of diabetes mellitus
CPT/HCPCS: 36415; 71045; 80048; 80053; 82728; 83605; 83615; 83735; 84145; 84484; 85025; 85379; 85610; 85730; 86140; 86850; 86900; 86901; 87635; 93005; 94640; 94760; 96361; 99285